=== PATIENT | male | born 1990 | race Caucasian/White ===

== ENCOUNTER 2016-09-29 11:59 | Emergency (ER) | payer OTHER ==
[~2016-09-29] VITALS: Ht 182.9 cm; Wt 88.5 kg
--- OUTSIDE RECORDS SUMMARY | ~2016-09-29 | XMS ---
Demographics + + + | Address | [address] | | | [place] [address] | + + + | Preferred Language | Unknown | + + + | Marital Status | Unknown | + + + | Orthodoxy Affiliation | Unknown | + + + | Race | Unknown | + + + | Ethnic Group | Unknown | + + + Author + + + | Author | [facility] | + + + | Organization | [facility] | + + + | Address | [address] | | | [place] [address] | + + + | Phone | | + + + Care Team Providers + + + + | Care Grief Counselor Name | Role | Phone | + + + + Unavailable | Unavailable | + + + + PROBLEMS +---------+ + + +--------+ + + | Type | Condition | ICD9-CM | [id number] | Onset | Condition | SNOMED | | | | Code | Code | Dates | Status | Code | +---------+ + + +--------+ + + | Problem | Anxiety | | F41.8 | | Active | [id number] | | | about | | | | | | | | health | | | | | | +---------+ + + +--------+ + + ALLERGIES Unknown Allergies SOCIAL HISTORY No smoking Hx information available PLAN OF CARE + +---------+ | Activity | Details | + +---------+ +---+ | | +---+ + + + | Follow Up | prn Reason:null | + + + VITAL SIGNS MEDICATIONS + + + + + + + +--------+ | Medicati | Instruct | Dosage | Frequenc | Start | End Date | Duration | Status | | on | ions | | y | Date | | | | + + + + + + + +--------+ | Prilosec | Orally | 1 | 12h | 31 Mar, | | 30 | Active | | 40 MG | bid | capsule | | 2017 | | day(s) | | + + + + + + + +--------+ | Diazepam | | take one | | 13 Brendan, | | | Active | | 10 MG | | tab po | | 2016 | | | | | | | q12h as | | | | | | | | | needed | | | | | | | | | for | | | | | | | | | anxiety | | | | | | | | | until | | | | | | | | | follow | | | | | | | | | up with | | | | | | | | | primary | | | | | | | | | care | | | | | | | | | provider | | | | | | | | | | | | | | | | | | tomorrow | | | | | | | | | | | | | | | | | | afternoo | | | | | | | | | n | | | | | | + + + + + + + +--------+ | Ondanset | Orally | 1 tablet | 8h | | | | Active | | kelton 4 MG | every 8 | on the | | | | | | | | hrs | tongue | | | | | | | | | and | | | | | | | | | allow to | | | | | | | | | | | | | | | | | | dissolve | | | | | | + + + + + + + +--------+ RESULTS No Results PROCEDURES + + + + + | Procedure | Date Ordered | Related Diagnosis | Body Site | + + + + + | missed apptointment | August 17, 2016 | | | | charge | | | | + + + + + IMMUNIZATIONS No Known Immunizations"
--- OUTSIDE RECORDS SUMMARY | ~2016-09-29 | XMS ---
Demographics + + + | Address | [address] | | | [place] [address] | + + + | Preferred Language | Unknown | + + + | Marital Status | Unknown | + + + | Shinto Affiliation | Unknown | + + + | Race | Unknown | + + + | Ethnic Group | Unknown | + + + Author + + + | Author | [facility] | + + + | Organization | [facility] | + + + | Address | [address] | | | [place] [address] | + + + | Phone | | + + + Care Team Providers + + + + | Care Stapling Machine Operator Name | Role | Phone | + + + + Unavailable | Unavailable | + + + + PROBLEMS +---------+ + + +--------+ + + | Type | Condition | ICD9-CM | [id number] | Onset | Condition | SNOMED | | | | Code | Code | Dates | Status | Code | +---------+ + + +--------+ + + | Problem | Anxiety | | F41.8 | | Active | [id number] | | | about | | | | | | | | health | | | | | | +---------+ + + +--------+ + + ALLERGIES + + + + +---------+ | Substance | Reaction | Event Type | Date | Status | + + + + +---------+ | N.K.D.A. | Unknown | Non Drug | Jul, | Unknown | | | | Allergy | | | + + + + +---------+ SOCIAL HISTORY No smoking Hx information available PLAN OF CARE + +---------+ | Activity | Details | + +---------+ +---+ | | +---+ + + + | Follow Up | prn Reason:null | + + + VITAL SIGNS + + + + | Height | 72 in | 2016-07-20 | + + + + | Weight | 205.0 lbs | 2016-07-20 | + + + + | BMI | 27.80 kg/m2 | 2016-07-20 | + + + + | Temperature | 98.1 degrees Fahrenheit | 2016-07-20 | + + + + | Heart Rate | 77 /min | 2016-07-20 | + + + + | Blood pressure systolic | 138 mm Hg | 2016-07-20 | + + + + | Blood pressure diastolic | 87 mm Hg | 2016-07-20 | + + + + MEDICATIONS + [...] MG | | tab po | | 2017 | | | | | | | [...] | + + + + + | Est Level III | July 20, 2016 | | | | Intermediate | | | | + + + + + IMMUNIZATIONS No Known Immunizations"
--- OUTSIDE RECORDS SUMMARY | ~2016-09-29 | XMS ---
Demographics + + + | Address | [address] | | | [place] [address] | + + + | Preferred Language [...] | + + + | Organization | [facility] | + + + | Address | [address] | | | [place] [address] | + + + | Phone | | + + + Care Team Providers + + + + | Care Surgical Services Assistant Name | Role | Phone | + + + + Unavailable | Unavailable | + + + + PROBLEMS Unknown Problems ALLERGIES + + + + +---------+ | Substance | Reaction | Event Type | Date | Status | + + + + +---------+ | Amie | Unknown | Non Drug | Jul, | Unknown | | | | Allergy | | | + + + + +---------+ SOCIAL HISTORY No smoking Hx information available PLAN OF CARE + +---------+ | Activity | Details | + +---------+ +---+ | | +---+ + + + | Follow Up | 2 Weeks Reason:null | + + + VITAL SIGNS + + + + | Height | 72 in | 2016-07-14 | + + + + | Weight | 206.6 lbs | 2016-07-14 | + + + + | BMI | 28.02 kg/m2 | 2016-07-14 | + + + + | Temperature | 98.3 degrees Fahrenheit | 2016-07-14 | + + + + | Heart Rate | 69 /min | 2016-07-14 | + + + + | Blood pressure systolic | 143 mm Hg | 2016-07-14 | + + + + | Blood pressure diastolic | 60 mm Hg | 2016-07-14 | + + + + MEDICATIONS + [...] Range | + +--------+ + + | Sedimentation | | 2016-07-14 | | | Rate-Westergren | | | | + +--------+ + + | Sedimentation | | | | | Rate-Westergren | | | | + +--------+ + + | H. pylori IgG, Abs | | 2016-07-14 | | + +--------+ + + | H. pylori IgG, Abs | | | | + +--------+ + + PROCEDURES + + + + + | Procedure | Date Ordered | Related Diagnosis | Body Site | + + + + + | AUDIT/DAST | July 14, 2016 | | | + + + + + | Est Level III | July 14, 2016 | | | | Intermediate | | | | + + + + + IMMUNIZATIONS No Known Immunizations"
--- OUTSIDE RECORDS SUMMARY | ~2016-09-29 | XMS ---
Demographics + + + | Address | [address] | | | [place] [address] | + + + | Preferred Language | Unknown | + + + | Marital Status | Unknown | + + + | Oriental Orthodox Affiliation | Unknown | + + + | Race | Unknown | + + + | Ethnic Group | Unknown | + + + Author + + + | Author | [facility] | + + + | Organization | [facility] | + + + | Address | [address] | | | [place] [address] | + + + | Phone | | + + + Care Team Providers + + + + | Care Jig Grinder Set Up Operator Name | Role | Phone | + + + + Unavailable | Unavailable | + + + + PROBLEMS +---------+ + + +--------+ + + | Type | Condition | ICD9-CM | [id number] | Onset | Condition | SNOMED | | | | Code | Code | Dates | Status | Code | +---------+ + + +--------+ + + | Problem | Anxiety | | F41.8 | | Active | [id number] | | | about | | | | | | | | health | | | | | | +---------+ + + +--------+ + + ALLERGIES Unknown Allergies SOCIAL HISTORY No smoking Hx information available PLAN OF CARE VITAL SIGNS MEDICATIONS Unknown Medications RESULTS No Results PROCEDURES No Known procedures IMMUNIZATIONS No Known Immunizations"
--- OUTSIDE RECORDS SUMMARY | ~2016-09-29 | XMS ---
Demographics + + + | Address | [address] | | | [place] [address] | + + + | Preferred Language | Unknown | + + + | Marital Status | Unknown | + + + | Temple Affiliation | Unknown | + + + | Race | Unknown | + + + | Ethnic Group | Unknown | + + + Author + + + | Author | [facility] | + + + | Organization | [facility] | + + + | Address | [address] | | | [place] [address] | + + + | Phone | | + + + Care Team Providers + + + + | Care Supervisor Fruit Grading Name | Role | Phone | + + + + Unavailable | Unavailable | + + + + PROBLEMS +---------+ + + +--------+ + + | Type | Condition | ICD9-CM | [id number] | Onset | Condition | SNOMED | | | | Code | Code | Dates | Status | Code | +---------+ + + +--------+ + + | Problem | Anxiety | | F41.8 | | Active | [id number] | | | about | | | [...] + | Height | 72 in | 2016-07-19 | + + + + | Weight | 204.5 lbs | 2016-07-19 | + + + + | BMI | 27.73 kg/m2 | 2016-07-19 | + + + + | Temperature | 97.9 degrees Fahrenheit | 2016-07-19 | + + + + | Heart Rate | 80 /min | 2016-07-19 | + + + + | Blood pressure systolic | 124 mm Hg | 2016-07-19 | + + + + | Blood pressure diastolic | 79 mm Hg | 2016-07-19 | + + + + MEDICATIONS + [...] + | Est Level III | July 19, 2016 | | | | Intermediate | | | | + + + + + IMMUNIZATIONS No Known Immunizations"
--- OUTSIDE RECORDS SUMMARY | ~2016-09-29 | XMS ---
Demographics + + + | Address | [address] | | | [place] [address] | + + + | Preferred Language | Unknown | + + + | Marital Status | Unknown | + + + | Moravian Affiliation | Unknown | + + + | Race | Unknown | + + + | Ethnic Group | Unknown | + + + Author + + + | Author | [facility] | + + + | Organization | [facility] | + + + | Address | [address] | | | [place] [address] | + + + | Phone | | + + + Care Team Providers + + + + | Care Refiner Operator Name | Role | Phone | + + + + Unavailable | Unavailable | + + + + PROBLEMS +---------+ + + +--------+ + + | Type | Condition | ICD9-CM | [id number] | Onset | Condition | SNOMED | | | | Code | Code | Dates | Status | Code | +---------+ + + +--------+ + + | Problem | Anxiety | | F41.8 | | Active | [id number] | | | about | | | | | | | | health | | | | | | +---------+ + + +--------+ + + ALLERGIES Unknown Allergies SOCIAL HISTORY No smoking Hx information available PLAN OF CARE VITAL SIGNS MEDICATIONS Unknown Medications RESULTS No Results PROCEDURES No Known procedures IMMUNIZATIONS No Known Immunizations"
[~2016-09-29 11:59] MED LIST: ASACOL HD800 MG PO; GUAIATUSSIN AC10 ML PO; PREDNISONE20 MG PO; PRILOSEC OTC20 MG PO; PRILOSEC20 MG PO; PROVENTIL HFA6.7 GM INH; TRAMADOL HCL50 MG PO; ULTRAM50 MG PO; ZOFRAN ODT4 MG PO; ZOFRAN4 MG PO
== END 2016-09-29 12:10 | disposition home or self-care (01) ==
LOC: ED 11:59
DX: Z00.8 Encounter for other general examination (principal)

== ENCOUNTER 2017-04-11 12:24 | Emergency (ER) | payer BC ==
[~2017-04-11] VITALS: Ht 182.9 cm; Wt 88.5 kg
--- OUTSIDE RECORDS SUMMARY | ~2017-04-11 | XMS ---
Demographics + + + | Address | [address] | | | [place] [address] | + + + | Preferred Language | Unknown | + + + | Marital Status | Unknown | + + + | Catholic Affiliation | Unknown | + + + | Race | Unknown | + + + | Ethnic Group | Unknown | + + + Author + + + | Author | [facility] | + + + | Organization | [facility] | + + + | Address | [address] | | | [place] [address] | + + + | Phone | | + + + Care Team Providers + + + + | Care Lion Tamer Name | Role | Phone | + + + + Unavailable | Unavailable | + + + + PROBLEMS +---------+ + + +--------+ + + | Type | Condition | ICD9-CM | [id number] | Onset | Condition | SNOMED | | | | Code | Code | Dates | Status | Code | +---------+ + + +--------+ + + | Problem | Anxiety | | F41.8 | | Active | [id number] | | | about | | | | | | | | health | | | | | | +---------+ + + +--------+ + + ALLERGIES No Known Allergies SOCIAL HISTORY Never Assessed PLAN OF CARE + +---------+ | Activity | Details | + +---------+ +---+ | | +---+ + + + | Follow Up | as scheduled with PCP Reason:null | + + + VITAL SIGNS + + + + | Height | 72 in | 2016-09-29 | + + + + | Weight | 196.6 lbs | 2016-09-29 | + + + + | BMI | 26.66 kg/m2 | 2016-09-29 | + + + + | Temperature | 98.4 degrees Fahrenheit | 2016-09-29 | + + + + | Heart Rate | 79 /min | 2016-09-29 | + + + + | Blood pressure systolic | 123 mm Hg | 2016-09-29 | + + + + | Blood pressure diastolic | 89 mm Hg | 2016-09-29 | + + + + MEDICATIONS + + + + + + + +--------+ | Medicati | Instruct | Dosage | Frequenc | Start | End Date | Duration | Status | | on | ions | | y | Date | | | | + + + + + + + +--------+ | Mucinex | Orally | 1 tablet | 12h | | | | Active | | 600 MG | every 12 | as | | | | | | | | hrs | needed | | | | | | + + + + + + + +--------+ | Prilosec | Orally | 1 | 12h | 31 Apr, | | 30 | Active | | 40 MG | bid | capsule | | 2017 | | day(s) | | + + + + + + + +--------+ | Penicill | orally | 1 tablet | 12h | 24 Sep, | 3 Sep, | 10 days | Active | | in V | Twice a | | | 2016 | 2016 | | | | Potassiu | day | | | | | | | | m 500 MG | | | | | | | | + + + + + + + +--------+ RESULTS + +--------+------+ + | Name | Result | Date | Reference Range | + +--------+------+ + | Strep Gp A Rapid | | | | | (IH) | | | | + +--------+------+ + PROCEDURES + + +--------+ + | Procedure | Date Ordered | Result | Body Site | + + +--------+ + | STREP A ASSAY | Sep 29, 2016 | | | | W/OPTIC | | | | + + +--------+ + IMMUNIZATIONS No Known Immunizations MEDICAL (GENERAL) HISTORY + + +------+ | Type | Description | Date | + + +------+ | Medical History | ulceraitive colitis | | + + +------+ | Medical History | allergy to bee stings | | + + +------+ | Surgical History | colonoscopy x's 2 | | + + +------+ | Hospitalization History | ulcerative colitis, 1.5 | | | | week | | + + +------+"
--- OUTSIDE RECORDS SUMMARY | ~2017-04-11 | XMS ---
Demographics + + + | Address | [address] | | | [place] [address] | + + + | Preferred Language | Unknown | + + + | Marital Status | Unknown | + + + | Caodaism Affiliation | Unknown | + + + | Race | Unknown | + + + | Ethnic Group | Unknown | + + + Author + + + | Author | [facility] | + + + | Organization | [facility] | + + + | Address | [address] | | | [place] [address] | + + + | Phone | | + + + Care Team Providers + + + + | Care Loom Setter Fourdrinier Name | Role | Phone | + + + + Unavailable | Unavailable | + + + + PROBLEMS + + + + + + + + | Type | Condition | ICD9-CM | OVP99-VI | Onset | Condition | SNOMED | | | | Code | Code | Dates | Status | Code | + + + + + + + + | Assessment | GERD | | K21.9 | 31 Apr, | Active | [id number] | | | (gastroeso | | | 2017 | | | | | phageal | | | | | | | | reflux | | | | | | | | disease) | | | | | | + + + + + + + + | Assessment | Tobacco | | Z72.0 | 31 Apr, | Active | [id number] | | | abuse | | | 2017 | | | + + + + + + + + | Assessment | Abdominal | | R10.9 | 31 Apr, | Active | [id number] | | | pain | | | 2016 | | | + + + + + + + + ALLERGIES + + + + +---------+ | Substance | Reaction | Event Type | Date | Status | + + + + +---------+ | Sofya. | Unknown | Non Drug | Apr, | Unknown | | | | Allergy | | | + + + + +---------+ SOCIAL HISTORY No smoking Hx information available PLAN OF CARE VITAL SIGNS + + + + | Height | 72 in | 2016-05-06 | + + + + | Weight | 210.8 lbs | 2016-05-06 | + + + + | BMI | 28.59 kg/m2 | 2016-05-06 | + + + + | Heart Rate | 74 /min | 2016-05-06 | + + + + | Blood pressure systolic | 149 mm Hg | 2016-05-06 | + + + + | Blood pressure diastolic | 78 mm Hg | 2016-05-06 | + + + + MEDICATIONS + [...] + + + + + +--------+ | Omeprazo | | | | | | | Active | | le | | | | | | | | + + + + + + + +--------+ | Tramadol | Orally | 2 | 6h | | | | Active | | -Acetami | every 6 | tablets | | | | | | | nophen | hrs | as | | | | | | | 37.5-325 | | needed | | | | | | | MG | | | | | | | | + + + + + + + +--------+ RESULTS + +--------+ + + | Name | Result | Date | Reference Range | + +--------+ + + | H Pylori, IgA tTG | | 2016-05-06 | | | Ab | | | | + +--------+ + + PROCEDURES No Known procedures IMMUNIZATIONS No Known Immunizations"
[2017-04-11] MEDS ORDERED: NORCO 5-325 TA1 EACH PO (12:37)
[2017-04-11] MEDS ORDERED: ONDANSETRON ODT8 MG PO (14:47)
== END 2017-04-11 14:56 | disposition home or self-care (01) ==
LOC: ED 12:24
DX: K52.9 Noninfective gastroenteritis and colitis, unspecified (principal); J45.909 Unspecified asthma, uncomplicated; Z91.030 Bee allergy status
CPT/HCPCS: 74177; 80053; 81001; 82150; 83690; 85025; 87502; 96374; 96375; 99284; J1170; J2405; J7030; Q9967

== ENCOUNTER 2017-10-11 12:57 | Emergency (ER) | payer BC ==
[~2017-10-11] VITALS: Ht 182.9 cm; Wt 88.5 kg
[~2017-10-11 12:57] MED LIST changes: +NORCO 5-325 TA1 EACH PO; +ONDANSETRON ODT8 MG PO
[2017-10-11] MEDS ORDERED: DICYCLOMINE HCL20 MG PO (15:39)
== END 2017-10-11 15:53 | disposition home or self-care (01) ==
LOC: ED 12:57
DX: K51.90 Ulcerative colitis, unspecified, without complications (principal); J45.909 Unspecified asthma, uncomplicated; Z91.030 Bee allergy status
CPT/HCPCS: 80053; 81001; 83690; 85025; 96374; 99284; J2405

== ENCOUNTER 2018-02-17 12:33 | Emergency (ER) | payer BC ==
[~2018-02-17] VITALS: Ht 182.9 cm; Wt 88.5 kg
[~2018-02-17 12:33] MED LIST changes: +DICYCLOMINE HCL20 MG PO
[2018-02-17] MEDS ORDERED: LIDOCAINE HCL100 ML MT (13:05)
[2018-02-17] MEDS ORDERED: METHYLPREDNISOLO4 M1 PO (13:06)
[2018-02-17] MEDS ORDERED: MAALOX MAXIMUM355 ML PO (13:07)
[2018-02-17] MEDS ORDERED: PANTOPRAZOLE SO40 MG PO (17:04)
[2018-02-17] MEDS ORDERED: DICYCLOMINE HCL10 MG PO (17:04)
== END 2018-02-17 17:28 | disposition home or self-care (01) ==
LOC: ED 12:33
DX: K52.9 Noninfective gastroenteritis and colitis, unspecified (principal); J45.909 Unspecified asthma, uncomplicated; Z91.038 Other insect allergy status; Z79.899 Other long term (current) drug therapy; Z79.52 Long term (current) use of systemic steroids
CPT/HCPCS: 74177; 80053; 83690; 85025; 96361; 96374; 96375; 99284-25; C9113; J2270; J2405; J7030; Q9967

== ENCOUNTER 2018-05-16 22:09 | Emergency (ER) | payer BC ==
[~2018-05-16] VITALS: Ht 182.9 cm; Wt 88.5 kg
--- OUTSIDE RECORDS SUMMARY | ~2018-05-16 | XMS | Encounter Summary ---
Demographics + + + | Address | [address] | | | [place] [address] | + + + | Home Phone | | + + + | Preferred Language | Unknown | + + + | Marital Status | Unknown | + + + | Taoism Affiliation | Unknown | + + + | Race | Unknown | + + + | Ethnic Group | Unknown | + + + Author + + + | Author | [facility] | | | and [place] | + + + | Organization | [facility] | | | and [place] | + + + | Address | Unknown | + + + | Phone | Unavailable | + + + Care Team Providers + +------+ + | Care Director Instrumentation Name | Role | Phone | + +------+ + | Emilia Dean PCP | | + +------+ + Encounter Details +--------+ + + + + | Date | Type | Department | Care Team | Description | +--------+ + + + + | 03/01/ | Abstract | [facility] | Provider, | | | 2018 | | GASTROENTEROLOGY | MD Richardson [address] | | | | | [address] [facility] | [address] [address] | | | | | [address] [place], [place] | [place] [address] | | | | | [address] | | | | | | [phone] | | | +--------+ + + + + Social History + +-------+ +--------+------+ | Tobacco Use | Types | Packs/Day | Years | Date | | | | | Used | | + +-------+ +--------+------+ | Never Smoker | | | | | + +-------+ +--------+------+ + + +---------+ + | Alcohol Use | Drinks/We | oz/Week | Comments | | | ek | | | + + +---------+ + | Yes | | | Rare | + + +---------+ + + + + | Sex Assigned at | Date Recorded | | | | + + + | Not on file | | + + + + + + + | Job Start Date | Occupation | Industry | + + + + | Not on file | Not on file | Not on file | + + + + + + + + | Travel History | Travel Start | Travel End | + + + + + + | No recent travel history available. | + + documented as of this encounter Plan of Treatment Not on filedocumented as of this encounter Visit Diagnoses Not on filedocumented in this encounter"
--- OUTSIDE RECORDS SUMMARY | ~2018-05-16 | XMS | Clinical Summary ---
Demographics + + + | Address | [address] | | | [place] [address] | + + + | Home Phone | | + + + | Preferred Language | Unknown | + + + | Marital Status | Unknown | + + + | Latter-Day Affiliation | Unknown | + + + | Race | Unknown | + + + | Ethnic Group | Unknown | + + + Author + + + | Author | [facility] | | | and [place] | + + + | Organization | [facility] | | | and [place] | + + + | Address | Unknown | + + + | Phone | Unavailable | + + + Care Team Providers + +------+ + | Care Sampler Radioactive Waste Name | Role | Phone | + +------+ + | Emilia Dean | PP | | + +------+ + Allergies + [...] + +---------+------+------+-------+ Active Problems Not on file Encounters +--------+ + + + + | Date | Type | Specialty | Care Team | Description | +--------+ + + + + | 03/01/ | Abstract | | Provider, | | | 2019 | | | MD Richardson | | +--------+ + + + + from Last 3 Months Social History + +-------+ +--------+------+ | Tobacco [...] | 93.4 kg (205 lb 12.8 | 10/30/20171723 PDT | | | oz) | | + + + + | Height | 185.4 cm (6' 1") | 10/30/20171723 PDT | + + + + | Body Mass Index | 27.15 | 10/30/20171723 PDT | + + + + Plan [...] Vaccine: Influenza | | | | | (Season Ended) | 9 | | | + + + + + Procedures + +--------+ + + + | Procedure Name | Priori | Date/Time | Associated Diagnosis | Comments | | | ty | | | | + +--------+ + + + | PATHOLOGY - EXTERNAL | | 05/03/2018 | | Results for this | | SCAN | | 0:00 PDT | | procedure are in the | | | | | | results section. | + +--------+ + + + | DIAGNOSTIC REPORT - | | 05/03/2018 | | Results for this | | EXTERNAL SCAN | | 0:00 PDT | | procedure are in the | | | | | | results section. | + +--------+ + + + from Last 3 Months Results PATHOLOGY - EXTERNAL SCAN (05/03/2018 0:00 PDT) + + + | Narrative | Performed At | + + + | Ordered by an | | | unspecified provider. | | + + + DIAGNOSTIC REPORT - EXTERNAL SCAN (05/03/2018 0:00 PDT) + + + | Narrative | Performed At | + + + | Ordered by an | | | unspecified provider. | | + + + from Last 3 Months Insurance +-------+--------+ +--------+-------+---------+------+ | Payer | Benefi | Subscriber | Effect | Phone | Address | Type | | | t Plan | ID | fredrick | | | | | | / | | Dates | | | | | | Group | | | | | | +-------+--------+ +--------+-------+---------+------+ | BCBS | BCBS | [id number] | 02/06/19 | | | PPO | [...] | Self [birth year] | [address] | | | al/Fam | | 1990 | [phone] | [place] [address] | | | olga | | | 2 (Home) | | + +--------+ +--------+ + + Advance Directives Patient has advance care planning documents on file. For more information, please contact:[facility] [place] [address]
--- OUTSIDE RECORDS SUMMARY | ~2018-05-16 | XMS | Encounter Summary ---
Demographics + + + | Address | [address] | | | [place] [address] | + + + | Home Phone | | + + + | Preferred Language | Unknown | + + + | Marital Status | Unknown | + + + | Pentecostal Affiliation | Unknown | + + + | Race | Unknown | + + + | Ethnic Group | Unknown | + + + Author + + + | Author | [facility] | | | and [place] | + + + | Organization | [facility] | | | and [place] | + + + | Address | Unknown | + + + | Phone | Unavailable | + + + Care Team Providers + +------+ + | Care Terra Cotta Mold Maker Name | Role | Phone | + +------+ + | Emilia Dean PCP | | + +------+ + Encounter Details +--------+ + + + + | Date | Type | Department | Care Team | Description | +--------+ + + + + | 03/01/ | Abstract | [facility] | Provider, | | | 2018 | | GASTROENTEROLOGY | MD Richardson [address] | | | | | [address] [facility] | [address] | | | | | [address] [place], [place] | [place] [address] | | | | | [address] | | | | | | [phone] | | | +--------+ + + + [...]
--- OUTSIDE RECORDS SUMMARY | ~2018-05-16 | XMS | Clinical Summary ---
Demographics + + + | Address | [address] | | | [place] [address] | + + + | Home Phone | | + + + | Preferred Language | Unknown | + + + | Marital Status | Unknown | + + + | Jehovah'S Witness Affiliation | Unknown | + + + | Race | Unknown | + + + | Ethnic Group | Unknown | + + + Author + + + | Author | [facility] | | | and [place] | + + + | Organization | [facility] | | | and [place] | + + + | Address | Unknown | + + + | Phone | Unavailable | + + + Care Team Providers + +------+ + | Care Greenhouse Or Nursery Transplanter Name | Role | Phone | + [...] | | t Plan | ID | fredrcik | | | | | | / | | Dates | | | | | | Group | | | | | | +-------+--------+ +--------+-------+---------+------+ | BCBS | BCBS | [id number] | 02/06/19 | | | PPO | [...] | 1990 | [phone] | [place] [address] | | | olga | | | 2 (Home) | | + +--------+ +--------+ + + Advance Directives Patient has advance care planning documents on file. For more information, please contact:[facility] [place] [address]
[~2018-05-16 22:09] MED LIST changes: +DICYCLOMINE HCL10 MG PO; +LIDOCAINE HCL100 ML MT; +MAALOX MAXIMUM355 ML PO; +METHYLPREDNISOLO4 M1 PO; +PANTOPRAZOLE SO40 MG PO
--- OUTSIDE RECORDS SUMMARY | 2018-05-16 22:12 | XMS ---
PreManage Notification: [facility]OB[facility] [place] Security Talk Show Host Events No recent Security Events currently on file CRITERIA MET - [facility] - Has Care Guidelines CARE PROVIDERS EMILIA SMITH Physician High Risk Case Manager Current PHONE: [phone] [place] has no Care Guidelines for this patient. Care History Medical/Surgical 10/12/2017 [facility] spoke with [facility] and scheduled patient an apt with Emilia Smith to establish care on 10/13/2017 @ 9:00am. - Patient is aware of the appointment and stated he would make it to the appointment. E.D. VISIT COUNT (12 MO.) 3 [facility] TOTAL 3 NOTE: Visits indicate total known visits. ED/UCC VISIT TRACKING (12 MO.) 05/16/2018 22:09 [facility] TYPE: Emergency COMPLAINT: - R TOE PAIN 02/17/2018 12:35 [facility] TYPE: Emergency COMPLAINT: - ABD PAIN DIAGNOSES: - Noninfective gastroenteritis and colitis, unspecified - Other manager long term care (current) drug therapy - Unspecified asthma, uncomplicated - Other insect allergy status - Upper abdominal pain, unspecified - penitentiary (current) use of systemic steroids 10/11/2017 12:59 [facility] TYPE: Emergency COMPLAINT: - ABD PAIN DIAGNOSES: - Bee allergy status - Epigastric pain - Unspecified asthma, uncomplicated - Ulcerative colitis, unspecified, without complications INPATIENT VISIT TRACKING (12 MO.) No inpatient visits to display in this time frame [id number]
[2018-05-17] MEDS ORDERED: TRAMADOL HCL50 MG PO (00:53)
== END 2018-05-17 01:21 | disposition home or self-care (01) ==
LOC: ED 22:09
DX: S90.111A Contusion of right great toe without damage to nail, initial encounter (principal); J45.909 Unspecified asthma, uncomplicated; Z91.030 Bee allergy status; W22.8XXA Striking against or struck by other objects, initial encounter
CPT/HCPCS: 73660; 99283-25

== ENCOUNTER 2018-11-25 08:35 | Emergency (ER) | payer BC ==
[~2018-11-25] VITALS: Ht 182.9 cm; Wt 102.1 kg
--- OUTSIDE RECORDS SUMMARY | ~2018-11-25 | XMS | Clinical Summary ---
Demographics + + + | Address | [address] | | | [place] [address] | + + + | Home Phone | | + + + | Preferred Language | Unknown | + + + | Marital Status | Unknown | + + + | Rastafari Affiliation | Unknown | + + + | Race | Unknown | + + + | Ethnic Group | Unknown | + + + Author + + + | Author | [facility] | | | and [place] | + + + | Organization | [facility] | | | and [place] | + + + | Address | Unknown | + + + | Phone | Unavailable | + + + Care Team Providers + +------+ + | Care Autocad Designer Name | Role | Phone | + +------+ + | Emilia Dean PCP | | + +------+ + Allergies + + + + + + | Active Allergy | Reactions | Severity | Noted | Comments | | | | | Date | | + + + + + + | Bee Venom | Swelling | High | 10/31/19 | | | | | | 18 | | + + + + + + Medications + + + +---------+------+------+-------+ | Medication | Sig | Dispensed | Refills | Star | End | Statu | | | | | | t | Date | s | | | | | | Date | | | + + + +---------+------+------+-------+ | dicyclomine | Take 20 mg by mouth | | 0 | | | Activ | | (BENTYL) 20 MG | every 6 hours. | | | | | e | | tablet | | | | | | | + + + +---------+------+------+-------+ | albuterol (PROAIR | Inhale 2 puffs into | | 0 | | | Activ | | HFA) 90 mcg/puff | the lungs every 6 | | | | | e | | inhaler | hours as needed for | | | | | | | | Wheezing. | | | | | | + + + +---------+------+------+-------+ | | Take by mouth. | | 0 | | | Activ | | Pseudoephedrine-Napr | | | | | | e | | oxen Na (SUDAFED | | | | | | | | SINUS & PAIN 12 HOUR | | | | | | | | PO) | | | | | | | + + + +---------+------+------+-------+ | azithromycin | Take 500 mg by mouth | | 0 | | | Activ | | (ZITHROMAX) 500 MG | Daily. | | | | | e | | tablet | | | | | | | + + + +---------+------+------+-------+ | lidocaine | Take 15 mLs by | | 0 | | | Activ | | (XYLOCAINE) 2% | mouth. | | | | | e | | solution | | | | | | | + + + +---------+------+------+-------+ | methylPREDNISolone | Take 4 mg by mouth | | 0 | | | Activ | | (MEDROL) 4 mg | Daily. | | | | | e | | tablet | | | | | | | + + + +---------+------+------+-------+ | | | | 0 | 08/0 | | Activ | | acetaminophen-codein | | | | 9/20 | | e | | e (TYLENOL #3) | | | | 18 | | | | 300-30 mg per tablet | | | | | | | + + + +---------+------+------+-------+ | dicyclomine | Take 1 capsule by | | 0 | 01/1 | | Activ | | (BENTYL) 10 mg | mouth 3 times daily. | | | 2/20 | | e | | capsule | | | | 19 | | | + + + +---------+------+------+-------+ | SUPREP BOWEL PREP | | | 0 | 03/2 | | Activ | | KIT oral solution | | | | 5/20 | | e | | | | | | 19 | | | + + + +---------+------+------+-------+ | omeprazole | | | 3 | 03/2 | | Activ | | (PRILOSEC) 40 MG | | | | 5/20 | | e | | capsule | | | | 19 | | | + + + +---------+------+------+-------+ | ondansetron | | | 0 | 03/2 | | Activ | | (ZOFRAN) 4 mg tablet | | | | 5/20 | | e | | | | | | 19 | | | + + + +---------+------+------+-------+ | pantoprazole | | | 0 | 01/1 | | Activ | | (PROTONIX) 40 mg | | | | 2/20 | | e | | tablet | | | | 19 | | | + + + +---------+------+------+-------+ | penicillin 500 mg | | | 0 | 08/0 | | Activ | | tablet | | | | 9/20 | | e | | | | | | 18 | | | + + + +---------+------+------+-------+ | | | | 0 | 07/0 | | Activ | | sulfamethoxazole-tri | | | | 6/20 | | e | | methoprim (BACTRIM | | | | 18 | | | | DS) 800-160 mg per | | | | | | | | tablet | | | | | | | + + + +---------+------+------+-------+ Active Problems Not on file Family History + + +------+ + | Medical History | Relation | Name | Comments | + + +------+ + | No known problems | Father | | | + + +------+ + | No known problems | Mother | | | + + +------+ + | Crohn's disease | Neg Hx | | | + + +------+ + | Ulcerative colitis | Neg Hx | | | + + +------+ + + +------+--------+ + | Relation | Name | Status | Comments | + +------+--------+ + | Father | | | | + +------+--------+ + | Mother | | | | + +------+--------+ + Social History + +-------+ +--------+------+ | [...] recent travel history available. | + + Last Filed Vital Signs + + + + | Vital Sign | Reading | Time Taken | + + + + | Blood Pressure | - | - | + + + + | Pulse | - | - | + + + + | Temperature | - | - | + + + + | Respiratory Rate | - | - | + + + + | Oxygen Saturation | - | - | + + + + | Inhaled Oxygen | - | - | | Concentration | | | + + + + | Weight | 93.4 kg (205 lb 12.8 | 10/30/2017 1724 PDT | | | oz) | | + + + + | Height | 185.4 cm (6' 1") | 10/30/2017 1724 PDT | + + + + | Body Mass Index | 27.15 | 10/30/2017 1724 PDT | + + + + Plan of Treatment + + + + + | Health Maintenance | Due Date | Last Done | Comments | + + + + + | Vaccine: | | | | | Dtap/Tdap/Td (1 - | 9 | | | | Tdap) | | | | + + + + + | Vaccine: Influenza | | | | | (#1) | 9 | | | + + + + + Results Not on filefrom Last 3 Months Insurance +-------+--------+ +--------+-------+---------+------+ | Payer | Benefi | Subscriber | Effect | Phone | Address | Type | | | t Plan | ID | fredrick | | | | | | / | | Dates | | | | | | Group | | | | | | +-------+--------+ +--------+-------+---------+------+ | BCBS | BCBS | [id number] | 02/06/19 | | | PPO | | | FEDERA | | 18-Pre | | | | | | L FEP | | sent | | | | +-------+--------+ +--------+-------+---------+------+ + +--------+ +--------+ + + | Guarantor Name | Accoun | Relation to | Date | Phone | Billing Address | | | t Type | Patient | of | | | | | | | | | | + +--------+ +--------+ + + | Kasi Davidson | Person | Self [birth year] | | | [address] | | 1990 | [phone] | [place] [address] | | | olga | | | 2 (Home) | | + +--------+ +--------+ + + Advance Directives Patient has advance care planning documents on file. For more information, please contact:[facility] [place] [address]
--- OUTSIDE RECORDS SUMMARY | ~2018-11-25 | XMS | Clinical Summary ---
Demographics + + + | Address | [address] | | | [place] [address] | + + + | Home Phone | | + + + | Preferred Language | Unknown | + + + | Marital Status | Unknown | + + + | Sabianist Affiliation | Unknown | + + + | Race | Unknown | + + + | Ethnic Group | Unknown | + + + Author + + + | Author | [facility] | | | and [place] | + + + | Organization | [facility] | | | and [place] | + + + | Address | Unknown | + + + | Phone | Unavailable | + + + Care Team Providers + +------+ + | Care Finishing Department Supervisor Name | Role | Phone | + [...] +-------+--------+ +--------+-------+---------+------+ | BCBS | BCBS | [id number] | 02/06/19 | | | PPO | [...] [birth year] | [birth year] | | | [address] | | 1990 | [phone] | [place] [address] | | | olga | | | 2 (Home) | | + +--------+ +--------+ + + Advance Directives Patient has advance care planning documents on file. For more information, please contact:[facility] [place] [address]
--- OUTSIDE RECORDS SUMMARY | 2018-11-25 08:38 | XMS ---
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 Care History Medical/Surgical 10/12/2017 [facility] - [facility] spoke with [facility] Medicine and scheduled patient an apt with Emilia Smith to establish care on 10/13/2017 @ 9:00am. - Patient is aware of the appointment and stated he would make it to the appointment. E.Tisha. VISIT COUNT (12 MO.) 3 [facility] TOTAL 3 NOTE: Visits indicate total known visits. ED/UCC VISIT TRACKING (12 MO.) 11/25/2018 08:36 [facility] TYPE: Emergency COMPLAINT: - DIAHREAH 05/16/2018 22:09 [facility] [place] TYPE: Emergency COMPLAINT: - R TOE PAIN DIAGNOSES: - Contusion of right great toe w/o damage to nail, init encntr - Bee allergy status - Striking against or struck by other objects, init encntr - Unspecified asthma, uncomplicated 02/17/2018 12:35 [facility] [place] TYPE: Emergency COMPLAINT: - ABD PAIN DIAGNOSES: - Noninfective gastroenteritis and colitis, unspecified - Other mcc (current) drug therapy - Unspecified asthma, uncomplicated - Other insect allergy status - Upper abdominal pain, unspecified - 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
[2018-11-25] MEDS ORDERED: LOMOTIL TABLET1 EACH PO (10:19)
[2018-11-25] MEDS ORDERED: ONDANSETRON ODT8 MG PO (10:19)
== END 2018-11-25 11:25 | disposition home or self-care (01) ==
LOC: ED 08:35
DX: K52.9 Noninfective gastroenteritis and colitis, unspecified (principal); Z91.030 Bee allergy status
CPT/HCPCS: 80053; 85025; 96361; 96374; 99284-25; J2405; J7030

== ENCOUNTER 2019-03-22 21:26 | Emergency (ER) | payer OTHER ==
[~2019-03-22] VITALS: Ht 182.9 cm; Wt 102.1 kg
[~2019-03-22 21:26] MED LIST changes: +LOMOTIL TABLET1 EACH PO
--- OUTSIDE RECORDS SUMMARY | 2019-03-22 21:28 | XMS ---
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 Care History Medical/Surgical 10/12/2017 [facility] - [facility] spoke with [facility] and scheduled patient an apt with Emilia Smith to establish care on 10/13/2017 @ 9:00am. - Patient is aware of the appointment and stated he would make it to the appointment. E.D. VISIT COUNT (12 MO.) 3 [facility] TOTAL 3 NOTE: Visits indicate total known visits. ED/UCC VISIT TRACKING (12 MO.) 03/22/2019 21:26 [facility] TYPE: Emergency COMPLAINT: - SOB 11/25/2018 08:36 [facility] TYPE: Emergency COMPLAINT: - DIAHREAH DIAGNOSES: - Bee allergy status - Diarrhea, unspecified - Noninfective gastroenteritis and colitis, unspecified 05/16/2018 22:09 [facility] TYPE: Emergency COMPLAINT: - R TOE PAIN DIAGNOSES: - Contusion of right great toe w/o damage to nail, init encntr - Bee allergy status - Striking against or struck by other objects, init encntr - Unspecified asthma, uncomplicated INPATIENT VISIT TRACKING (12 MO.) No inpatient visits to display in this time frame [id number]
[2019-03-22] MEDS ORDERED: TYLENOL WITH C1 EACH PO (22:41)
== END 2019-03-22 22:50 | disposition home or self-care (01) ==
LOC: ED 21:26
DX: B34.9 Viral infection, unspecified (principal); Z91.030 Bee allergy status
CPT/HCPCS: 87502; 87880; 99283

== ENCOUNTER 2021-08-29 03:14 | Emergency (ER) | payer OTHER ==
[~2021-08-29] VITALS: Ht 182.9 cm; Wt 102.1 kg
[~2021-08-29 03:14] MED LIST changes: +TYLENOL WITH C1 EACH PO
[2021-08-29] MEDS ORDERED: LEVSIN0.125 MG PO (04:36)
[2021-08-29] MEDS ORDERED: ULTRAM50 MG PO (04:37)
== END 2021-08-29 05:29 | disposition home or self-care (01) ==
LOC: ED 03:14
DX: R10.9 Unspecified abdominal pain (principal); Z91.030 Bee allergy status
CPT/HCPCS: 36415; 74177; 80053; 81001; 83690; 85025; 96361; 96375; 99284-25; A9270; J1170; J2270; J2405; J7030; Q9967

== ENCOUNTER 2021-11-19 07:35 | Emergency (ER) | payer OTHER ==
[~2021-11-19] VITALS: Ht 182.9 cm; Wt 102.1 kg
[~2021-11-19 07:35] MED LIST changes: +LEVSIN0.125 MG PO
== END 2021-11-19 08:43 | disposition home or self-care (01) ==
LOC: ED 07:35
DX: S06.0X0A Concussion without loss of consciousness, initial encounter (principal); S01.01XA Laceration without foreign body of scalp, initial encounter; J45.909 Unspecified asthma, uncomplicated; Z91.030 Bee allergy status; W22.8XXA Striking against or struck by other objects, initial encounter; Y93.39 Activity, other involving climbing, rappelling and jumping off
CPT/HCPCS: 99282; A9270

== ENCOUNTER 2022-05-03 20:41 | Emergency (ER) | payer SELFPAY ==
[~2022-05-03] VITALS: Ht 182.9 cm; Wt 109.0 kg
[2022-05-04] MEDS ORDERED: PREDNISONE20 MG PO (00:26)
== END 2022-05-04 00:54 | disposition home or self-care (01) ==
LOC: ED 20:41
DX: R10.84 Generalized abdominal pain (principal); J45.909 Unspecified asthma, uncomplicated; Z91.030 Bee allergy status
CPT/HCPCS: 36415; 74177; 80053; 81003; 83690; 85025; 96361; 96375; 96376; 99284-25; J2270; J2405; J2930; J7030

== ENCOUNTER 2022-05-06 12:38 | Emergency (ER) | payer BC ==
[~2022-05-06] VITALS: Ht 182.9 cm; Wt 110.1 kg
--- OUTSIDE RECORDS SUMMARY | 2022-05-06 12:44 | XMS ---
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 Care History Medical/Surgical 10/12/2017 [facility] - [facility] spoke with [facility] Medicine and scheduled patient an apt with Emilia Smith to establish care on 10/13/2017 @ 9:00am. - Patient is aware of the appointment and stated he would make it to the appointment. ESilvino VISIT COUNT (12 MO.) 4 [facility] TOTAL 4 NOTE: Visits indicate total known visits. ED/UCC VISIT TRACKING (12 MO.) 05/06/2022 12:39 [facility] TYPE: Emergency COMPLAINT: - L UPPER RIB PAIN 05/03/2022 20:42 [facility] TYPE: Emergency COMPLAINT: - ABDOMINAL PAIN DIAGNOSES: - Bee allergy status - Generalized abdominal pain - Unspecified asthma, uncomplicated 11/19/2021 07:35 [facility] TYPE: Emergency COMPLAINT: - HEAD INJ DIAGNOSES: - Concussion without loss of consciousness, initial encounter - Striking against or struck by other objects, initial encounter - Unspecified asthma, uncomplicated - Bee allergy status - Activity, other involving climbing, rappelling and jumping off - Laceration without foreign body of scalp, initial encounter - Headache, unspecified 08/29/2021 03:15 [facility] TYPE: Emergency COMPLAINT: - ABD PAIN, BLOOD IN STOOL DIAGNOSES: - Bee allergy status - Unspecified abdominal pain INPATIENT VISIT TRACKING (12 MO.) No inpatient visits to display in this time frame [email or web address]
[2022-05-06] MEDS ORDERED: VALACYCLOVIR1000 MG PO (14:44)
--- NOTE | 2022-05-06 21:31 | EKG ---
[facility] [address] [facility] [place] [address] Signed Normal sinus rhythm Normal ECG No previous ECGs available Confirmed by MARI PASTOR MD ([id number]) on 05/06/2022 9:31:45 PM Electronically Signed By: MARI PASTOR MD 05/06/222130 PATIENT NAME: BOBBI MANSFIELD Electrocardiogram DATE OF : 89 PHYSICIAN: MARI PASTOR MD REPORT #: [id number] REPORT IS CONFIDENTIAL AND NOT TO BE RELEASED WITHOUT AUTHORIZATION
[2022-05-07] MEDS ORDERED: PREDNISONE20 MG PO (21:32)
== END 2022-05-06 14:59 | disposition home or self-care (01) ==
LOC: ED 12:38
DX: B02.9 Zoster without complications (principal); J45.909 Unspecified asthma, uncomplicated; Z91.030 Bee allergy status
CPT/HCPCS: 71045; 93005; 93010; 99283-25

== ENCOUNTER 2022-05-07 20:28 | Emergency (ER) | payer BC ==
[~2022-05-07] VITALS: Ht 182.9 cm; Wt 109.8 kg
[~2022-05-07 20:28] MED LIST changes: +VALACYCLOVIR1000 MG PO
--- OUTSIDE RECORDS SUMMARY | 2022-05-07 20:30 | XMS ---
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 Care History Medical/Surgical 10/12/2017 [facility] - [facility] spoke with [facility] Medicine and scheduled patient an apt with Emilia Smith to establish care on 10/13/2017 @ 9:00am. - Patient is aware of the appointment and stated he would make it to the appointment. ESilvino VISIT COUNT (12 MO.) 5 [facility] TOTAL 5 NOTE: Visits indicate total known visits. ED/UCC VISIT TRACKING (12 MO.) 05/07/2022 20:29 [facility] TYPE: Emergency COMPLAINT: - POSS OD 05/06/2022 12:39 [facility] [place] TYPE: Emergency [...] visits to display in this time frame [email or web address]
[2022-05-07] MEDS ORDERED: PREDNISONE20 MG PO (21:32)
== END 2022-05-07 21:59 | disposition home or self-care (01) ==
LOC: ED 20:28
DX: T38.0X1A Poisoning by glucocorticoids and synthetic analogues, accidental (unintentional), initial encounter (principal); J45.909 Unspecified asthma, uncomplicated; Z91.030 Bee allergy status; Z79.899 Other long term (current) drug therapy; Z79.52 Long term (current) use of systemic steroids
CPT/HCPCS: 99283; A9270

== ENCOUNTER 2023-09-20 10:35 | Emergency (ER) | payer OTHER ==
[~2023-09-20] VITALS: Ht 182.9 cm; Wt 100.6 kg
[2023-09-20] MEDS ORDERED: ACETAMINOPHEN 500 MG TAB PO ONE (11:00)
[2023-09-20] MEDS ORDERED: KETOROLAC TROMETHAMINE 60 MG/2 ML VIAL IM ONE (11:00)
[2023-09-20] MEDS ORDERED: methocarbamoL 500 MG TABLET PO ONE (11:00)
[2023-09-20 12:15] VITALS: BP 128/86
[2023-09-20] MEDS ORDERED: predniSONE 20 MG TAB PO ONE (12:15)
== END 2023-09-20 12:15 | disposition home or self-care (01) ==
LOC: ED 10:35
DX: M46.1 Sacroiliitis, not elsewhere classified (principal); J45.909 Unspecified asthma, uncomplicated; Z91.030 Bee allergy status; Z79.899 Other long term (current) drug therapy
CPT/HCPCS: 96372; 99283-25; A9270; J1885; J7512

== ENCOUNTER 2024-01-13 13:30 | Emergency (ER) | payer OTHER ==
[~2024-01-13] VITALS: Ht 182.9 cm; Wt 115.3 kg
[~2024-01-13 13:30] MED LIST changes: +AMOX TR-K CLV1 EAC1 PO; +DOXYCYCLINE HY100 MG PO; +HYDROCODON-ACE1 EA10 PO; +HYDROCODON-ACE1 EA11 PO; +METHOCARBAMOL500 MG PO; +METHOCARBAMOL750 MG PO; +VENTOLIN HFA18 GM INH
[2024-01-13] MEDS ORDERED: ondansetron HCL 4 MG/2 ML VIAL IV ONE (15:00)
[2024-01-13 15:06] LABS: BASOPHILS 0.4 % (0-2); EOSINOPHILS 1.3 % (0-6); HEMATOCRIT 45.6 % (35.0-50.0); HEMOGLOBIN 15.2 g/dL (12.0-18.0); LYMPHOCYTES 16.8 % (24-44); MCH 28.9 (27-36); MCHC 33.3 g/dl (30-36); MCV 86.9 fl (81-99); MONOCYTES 8.6 % (0-12); NEUTROPHILS 72.9 % (39-80); PLATELET COUNT 241 K/uL (140-440); RBC 5.25 M/ul (4.3-5.7); RDW 13.3 (10.5-15.0)
[2024-01-13] MEDS ORDERED: PANTOPRAZOLE SODIUM 40 MG/10 ML VIAL IV ONE (15:15)
[2024-01-13] MEDS ORDERED: SODIUM CHLORIDE 0.9% 1,000 ML IV PRN (15:15)
[2024-01-13] MEDS ORDERED: HYDROmorphone HCL 1 MG/ML SYR IV ONE ×3 (15:15→17:15)
[2024-01-13 15:22] LABS: ALBUMIN 3.9 g/dL (3.4-5.0); ALBUMIN/GLOBULIN RATIO 0.93 (1.1-2.4); ANION GAP 13.1 (7-21); BILIRUBIN, TOTAL 0.5 ng/dL (0.2-1.0); BUN/CREATININE RATIO 15.68 (6.0-28.6); CREATININE, SERUM 1.02 mg/dL (0.70-1.30); POTASSIUM 4.1 mmol/L (3.5-5.1); PROTEIN, TOTAL 8.1 g/dL (6.4-8.2)
[2024-01-13 16:17] LABS: BILIRUBIN, URINE NEGATIVE (negative); BLOOD/HGB, URINE NEGATIVE (Negative); KETONE, URINE NEGATIVE (Negative); LEUK ESTERASE, URINE NEGATIVE (negative); NITRITE, URINE NEGATIVE (negative)
[2024-01-13] MEDS ORDERED: droPERidol 5 MG/2 ML VIAL IV ONE (18:00)
[2024-01-13] MEDS ORDERED: ONDANSETRON ODT4 MG SL (18:47)
[2024-01-13] MEDS ORDERED: HYDROCODON-ACE1 EA10 PO (18:47)
[2024-01-13 18:58] VITALS: BP 114/97
== END 2024-01-13 19:00 | disposition home or self-care (01) ==
LOC: ED 13:30
PROVIDERS: Emergency Medicine
DX: R10.84 Generalized abdominal pain (principal); Z91.030 Bee allergy status; Z79.52 Long term (current) use of systemic steroids
CPT/HCPCS: 36415; 74177; 80053; 81003; 83690; 85025; 96375; 96376; 99284-25; J1171; J1790; J2405; J2470; J7030; Q9967

== ENCOUNTER 2024-04-15 08:19 | Emergency (ER) | payer OTHER ==
[~2024-04-15] VITALS: Ht 182.9 cm; Wt 119.4 kg
[~2024-04-15 08:19] MED LIST changes: +ONDANSETRON ODT4 MG SL
[2024-04-15 08:53] VITALS: BP 149/80
== END 2024-04-15 08:54 | disposition home or self-care (01) ==
LOC: ED 08:19
DX: J00 Acute nasopharyngitis [common cold] (principal); J45.909 Unspecified asthma, uncomplicated; Z79.899 Other long term (current) drug therapy; Z91.030 Bee allergy status
CPT/HCPCS: 99284